=== PATIENT | male | born 1990 | race African-American/Black ===

== ENCOUNTER 2019-01-17 16:19 | Inpatient (IN) | payer OTHER ==
[~2019-01-17] VITALS: Ht 188 cm; Wt 75.8 kg
[~2019-01-17 16:19] MED LIST: ACET325T33 PO; CEPH500C PO; IBUP-1982 PO; [UNRECOGNIZED DRUG - REMARK]
[2019-01-17 20:36] VITALS: Ht 188 cm; Wt 75.8 kg
[2019-01-17 20:44] VITALS: BP 138/84; RESP 18
[2019-01-17] MEDS: HYDROCODONE/APAP (5/325) TAB PO PRN (22:02)
[2019-01-17] MEDS ORDERED: HYDROCODONE/APAP (5/325) TAB PO PRN (22:30)
[2019-01-17] MEDS ORDERED: NACL 0.9% 3 ML SYG IV SCH (22:30)
[2019-01-17] MEDS ORDERED: ONDANSETRON 4 MG INJ IV PRN (22:30)
[2019-01-17] MEDS ORDERED: ACETAMINOPHEN 325 MG TAB PO PRN (22:30)
[2019-01-17] MEDS: SOD CHLORIDE 0.9% 1,000 ML IV SCH (22:50)
[2019-01-18 00:24] VITALS: BP 140/85; RESP 18
[2019-01-18] MEDS: HYDROCODONE/APAP (5/325) TAB PO PRN ×4 (02:31→21:18)
[2019-01-18 04:58] VITALS: BP 124/60; RESP 16
[2019-01-18 08:03] VITALS: BP 131/83; PULSE 51; RESP 18
[2019-01-18] MEDS: SOD CHLORIDE 0.9% 1,000 ML IV SCH ×2 (08:28→18:17)
[2019-01-18] MEDS: CEFTRIAXONE 1 GM/50 ML (PMX) 50 ML IVPB SCH (09:44)
[2019-01-18 12:00] VITALS: BP 153/75; PULSE 62; RESP 18
[2019-01-18 16:00] VITALS: BP 136/78; PULSE 58; RESP 18
[2019-01-18 20:00] VITALS: BP 130/72; PULSE 57; RESP 18
[2019-01-18] MEDS ORDERED: morphine 2 MG INJ IV STA (21:34)
[2019-01-19] VITALS: BP 112/54; PULSE 61; RESP 18
[2019-01-19 04:34] VITALS: BP 121/60; PULSE 54; RESP 18
[2019-01-19] MEDS: SOD CHLORIDE 0.9% 1,000 ML IV SCH ×2 (04:35→13:09)
[2019-01-19] MEDS: HYDROCODONE/APAP (5/325) TAB PO PRN ×4 (06:50→21:43)
[2019-01-19 08:26] VITALS: BP 127/60; PULSE 55; RESP 20
[2019-01-19] MEDS: CEFTRIAXONE 1 GM/50 ML (PMX) 50 ML IVPB SCH (10:22)
[2019-01-19 12:07] VITALS: BP 129/65; PULSE 58; RESP 18
[2019-01-19] MEDS ORDERED: morphine 2 MG INJ IV STA (13:19)
[2019-01-19 16:22] VITALS: BP 119/58; PULSE 76; RESP 18
[2019-01-19 20:00] VITALS: BP 116/67; PULSE 59; RESP 17
[2019-01-20 00:38] VITALS: BP 130/67; PULSE 57; RESP 18
[2019-01-20 02:33] VITALS: BP 119/58; PULSE 58; RESP 18
[2019-01-20 07:34] VITALS: BP 128/70; PULSE 58; RESP 18
[2019-01-20] MEDS: HYDROCODONE/APAP (5/325) TAB PO PRN ×3 (07:48→18:57)
[2019-01-20] MEDS: CEFTRIAXONE 1 GM/50 ML (PMX) 50 ML IVPB SCH (08:57)
[2019-01-20 14:33] VITALS: BP 117/56; PULSE 65; RESP 18
== END 2019-01-20 19:31 | disposition home or self-care (01) | DRG 607 ==
LOC: TEL 19:21 → MS1 01-19 22:22
PROVIDERS: ADMIT Internal Medicine; ATTEND Internal Medicine
PROC: 0Y9N0ZZ Drainage of Left Foot, Open Approach (ICD-10-PCS; principal; 2019-01-18)
PROC: 0Y9M0ZZ Drainage of Right Foot, Open Approach (ICD-10-PCS; 2019-01-18)
PROC: 0H9NXZZ Drainage of Left Foot Skin, External Approach (ICD-10-PCS; 2019-01-19)
PROC: 0H9MXZZ Drainage of Right Foot Skin, External Approach (ICD-10-PCS; 2019-01-19)
DX: S90.822A Blister (nonthermal), left foot, initial encounter (principal); N17.9 Acute kidney failure, unspecified; N39.0 Urinary tract infection, site not specified; S91.301A Unspecified open wound, right foot, initial encounter; S91.302A Unspecified open wound, left foot, initial encounter; F14.10 Cocaine abuse, uncomplicated; F17.200 Nicotine dependence, unspecified, uncomplicated; D64.9 Anemia, unspecified; S90.31XA Contusion of right foot, initial encounter; S90.32XA Contusion of left foot, initial encounter; S90.821A Blister (nonthermal), right foot, initial encounter; Y93.01 Activity, walking, marching and hiking; Y92.89 Other specified places as the place of occurrence of the external cause; Y99.8 Other external cause status
CPT/HCPCS: 76775; 80048; 80053; 80061; 80307; 81003; 83036; 83735; 84443; 85025; 87081; 87086; J0696; J2270; J7030